=== PATIENT | female | born 1960 | race Caucasian/White ===

== ENCOUNTER 2020-07-11 15:42 | Emergency (ER) | payer MEDICARE, OTHER ==
[2020-07-11] MEDS ORDERED: HYDROmorphone 1 MG/ML Syringe IVPUSH STA (16:09)
[2020-07-11] MEDS ORDERED: Ondansetron 4 MG/2 ML SDV IVPUSH ONE (16:09)
[2020-07-11] MEDS ORDERED: Sodium Chloride 0.9% 1,000 ML IV SCH (16:15)
--- NOTE | 2020-07-11 16:16 | EDM.PDOC ---
ED HPI GENERAL MEDICAL PROBLEM - General Chief Complaint: Back Pain or Injury Stated Complaint: BACK PAIN/NAUSEA Time Seen by Provider: 07/11/20 15:57 Source of Information: Reports: Patient, RN Notes Reviewed History Limitations: Reports: No Limitations - History of Present Illness INITIAL COMMENTS - FREE TEXT/NARRATIVE: Patient is a 60-year-old female who presents to the ED for the evaluation of her sudden onset left back/flank pain. Patient notes that she was riding in a vehicle around 2:30 PM, to [facility] when she had a sudden onset pain, that made her feel instantly nauseous, to her left flank/back. She does hold her kidney area when she describes where her pain is coming from, she states that sometimes it does wrap around into her left groin. She notes she has felt pain like this before when she has had a kidney stone. She denies any dysuria, frequency or urgency, she states she is feeling slightly nauseous, but is in extreme amount of pain. She is not had any fevers or chills, or any vomiting or diarrhea, cough or shortness of breath. Patient's primary care provider is Dr. Abdul. Left Back Pain Score (Numeric/FACES): 10 - Related Data Allergies Allergy/AdvReac Type Severity Reaction Status Date / Time amlodipine Allergy Cannot Verified 07/11/20 15:56 Remember cefuroxime Allergy Cannot Verified 07/11/20 15:56 Remember hydralazine Allergy Other Verified 07/11/20 15:56 hydrochlorothiazide Allergy Other Verified 07/11/20 15:56 lisinopril Allergy Other Verified 07/11/20 15:56 peanut Allergy Other Verified 07/11/20 15:56 promethazine HCl Allergy Other Verified 07/11/20 15:56 [From Phenergan] ranitidine Allergy Cannot Verified 07/11/20 15:56 Remember red dye Allergy Cannot Verified 07/11/20 15:56 Remember valsartan Allergy Other Verified 07/11/20 15:56 meperidine HCl [From Demerol] AdvReac Disorientat Verified 07/11/20 15:56 ion morphine AdvReac Disorientat Verified 07/11/20 15:56 ion Home Meds: Home Meds Alendronate [Fosamax] 70 mg PO Q7D@0600 08/19/16 [History] Aspirin [Lo-Dose Aspirin EC] 81 mg PO DAILY 08/19/16 [History] Calcium Citrate Petite. 1 tab PO DAILY 08/19/16 [History] Famotidine [Pepcid] 20 mg PO DAILY 08/19/16 [History] Indapamide 2.5 mg PO DAILY 08/19/16 [History] Insulin Pump Novolog. 55 units SQ Q24H 08/19/16 [History] Lactobacillus Combo No.10 [Probiotic] 1 each PO DAILY 08/19/16 [History] Latanoprost [Xalatan 0.005% Ophth Soln] 2.5 ml EYERT BEDTIME 08/19/16 [History] Levothyroxine [Synthroid] 50 mcg PO ACBREAKFAST 08/19/16 [History] Multivitamin [Multiple Vitamins] 1 each PO DAILY 08/19/16 [History] Orphenadrine [Norflex] 1 tab PO Q12H PRN #10 tab.er 08/19/16 [Rx] Potassium 1 tab PO DAILY 08/19/16 [History] Pravastatin Sodium [Pravastatin (Pravachol)] 40 mg PO DAILY 08/19/16 [History] Prilosec. 40 mg PO DAILY 08/19/16 [History] atenoloL [Tenormin] 50 mg PO BID 08/19/16 [History] Past Medical History HEENT History: Reports: Glaucoma Cardiovascular History: Reports: High Cholesterol, Hypertension Gastrointestinal History: Reports: Colon Polyp, GERD, PUD Genitourinary History: Reports: Renal Calculus, Urinary Incontinence Musculoskeletal History: Reports: Osteoporosis Neurological History: Reports: TIA Endocrine/Metabolic History: Reports: Diabetes, Type I - Infectious Disease History Infectious Disease History: Reports: Chicken Pox, Mumps - Past Surgical History HEENT Surgical History: Reports: Cataract Surgery, Laser Surgery, Tonsillectomy GI Surgical History: Reports: Cholecystectomy, Colonoscopy Female Surgical History: Reports: Section, Hysterectomy Musculoskeletal Surgical History: Reports: Shoulder Surgery, Other (See Below) Other Musculoskeletal Surgeries/Procedures:: elbow surgery Social & Family History - Family History Family Medical History: No Pertinent Family History - Tobacco Use Tobacco Use Status *Q: Never Tobacco User - Caffeine Use Caffeine Use: Reports: None - Recreational Drug Use Recreational Drug Use: No - Living Situation & Occupation Living situation: Reports: , with Family ED ROS GENERAL - Review of Systems Review Of Systems: Comprehensive ROS is negative, except as noted in HPI. ED EXAM, RENAL/ - Physical Exam Exam: See Below Exam Limited By: No Limitations General Appearance: Alert, WD/WN, No Apparent Distress Respiratory/Chest: No Respiratory Distress, Lungs Clear, Normal Breath Sounds, No Accessory Muscle Use, Chest Non-Tender Cardiovascular: Normal Peripheral Pulses, Regular Rate, Rhythm, No Edema, No Murmur GI/Abdominal: Normal Bowel Sounds, Soft, Non-Tender, No Distention, No Mass Back Exam: Normal Inspection. No: CVA Tenderness (L), CVA Tenderness (R) Extremities: Normal Inspection, Normal Capillary Refill Neurological: Alert, Oriented, Normal Cognition, No Motor/Sensory Deficits Psychiatric: Normal Affect, Normal Mood Skin Exam: Warm, Dry, Intact, Normal Color, No Rash Course - Vital Signs Last Recorded V/S: Last Vital Signs Temp 97.0 F 07/11/20 15:53 Pulse 79 07/11/20 18:40 Resp 18 07/11/20 18:40 BP 190/86 H 07/11/20 18:40 Pulse Ox 96 07/11/20 18:40 - Orders/Labs/Meds Orders: Active Orders 24 hr Category Date Time Status Abdomen Pelvis wo Cont [CT] Stat Exams 07/11/20 16:09 Taken Labs: Laboratory Tests 07/11/20 07/11/20 07/11/20 Range/Units 16:01 16:37 16:58 WBC 6.10 (3.98-10.04) K/mm3 RBC 5.08 (3.98-5.22) M/mm3 Hgb 14.5 (11.2-15.7) gm/dl Hct 44.2 (34.1-44.9) % MCV 87.0 (79.4-94.8) fl MCH 28.5 (25.6-32.2) pg MCHC 32.8 (32.2-35.5) g/dl RDW Std Deviation 43.7 (36.4-46.3) fL Plt Count 236 (182-369) K/mm3 MPV 10.2 (9.4-12.3) fl Neut % (Auto) 58.2 (34.0-71.1) % Lymph % (Auto) 26.7 (19.3-51.7) % [place] % (Auto) 11.8 (4.7-12.5) % Eos % (Auto) 2.6 (0.7-5.8) Baso % (Auto) 0.5 (0.1-1.2) % Neut # (Auto) 3.55 (1.56-6.13) K/mm3 Lymph # (Auto) 1.63 (1.18-3.74) K/mm3 [place] # (Auto) 0.72 H (0.24-0.36) K/mm3 Eos # (Auto) 0.16 (0.04-0.36) K/mm3 Baso # (Auto) 0.03 (0.01-0.08) K/mm3 Sodium 136 (136-145) mEq/L Potassium 3.8 (3.5-5.1) mEq/L Chloride 101 (98-107) mEq/L Carbon Dioxide 28 (21-32) mEq/L Anion Gap 10.8 (5-15) BUN 20 H (7-18) mg/dL Creatinine 1.6 H (0.55-1.02) mg/dL Est Cr Clr Drug Dosing 36.36 mL/min Estimated GFR (MDRD) 33 (>60) mL/min BUN/Creatinine Ratio 12.5 L (14-18) Glucose 200 H (74-106) mg/dL Calcium 9.1 (8.5-10.1) mg/dL Total Bilirubin 0.7 (0.2-1.0) mg/dL AST 13 L (15-37) U/L ALT 20 (14-59) U/L Alkaline Phosphatase 81 (46-116) U/L Total Protein 7.0 (6.4-8.2) g/dl Albumin 3.9 (3.4-5.0) g/dl Globulin 3.1 gm/dL Albumin/Globulin Ratio 1.3 (1-2) Urine Color [place] H (Yellow) Urine Appearance Cloudy H (Clear) Urine pH 7.0 (5.0-8.0) Ur Specific [place] 1.020 (1.005-1.030) Urine Protein 1+ H (Negative) Urine Glucose (UA) Trace H (Negative) Urine Ketones Negative (Negative) Urine Occult Blood 3+ H (Negative) Urine Nitrite Negative (Negative) Urine Bilirubin Negative (Negative) Urine Urobilinogen 1.0 (0.2-1.0) Ur Leukocyte Esterase 1+ H (Negative) Urine RBC >100 H (0-5) /hpf Urine WBC 0-5 (0-5) /hpf Ur Epithelial Cells 0-5 (0-5) /hpf Urine Bacteria Rare (FEW) /hpf Urine Mucus Few (FEW) /hpf Meds: Medications Discontinued Medications Generic Name Dose Route Start Last Admin Trade Name Freq PRN Reason Stop Dose Admin Hydromorphone HCl 1 mg 07/11/20 16:09 07/11/20 16:40 Dilaudid IVPUSH 07/11/20 16:10 1 mg ONETIME STA Administration Sodium Chloride 1,000 mls @ 500 mls/hr 07/11/20 16:15 07/11/20 16:40 Normal Saline IV 500 mls/hr ASDIRECTED STEVEN Administration Ondansetron HCl 4 mg 07/11/20 16:09 07/11/20 16:39 Zofran IVPUSH 07/11/20 16:10 4 mg ONETIME ONE Administration - Re-Assessments/Exams Free Text/Narrative Re-Assessment/Exam: 07/11/20 16:16 Patient presents to the ED for evaluation of her sudden onset left flank pain. Highly likely this could be a kidney stone. We will get IV started, give her some pain meds and nausea meds some fluids get some basic labs urinalysis and a CT without contrast for further evaluation. 07/11/20 17:[address] has been performed, there does appear to be a proximal left ureteral stone. Patient's urine was pink-tinged, however labs are still pending at this time. The stone appears to be only a few millimeters in diameter and should pass on its own without much difficulty. 07/11/20 17:[address] is done, demonstrates a 2 mm stone in the proximal left ureter with moderate left hydronephrosis. There is moderate right hydronephrosis as well with prominence of the right renal pelvis. The remainder of the right ureter appears to be grossly normal in caliber. Possible etiologies would include a component of right UPJ obstruction or other potential obstructing etiology. May consider follow-up imaging. Moderate amount of fluid within the stomach is also present. No other acute abnormalities were appreciated. Patient does have some renal insufficiency, creatinine is 1.6, GFR is 33. The IV fluids should help, will get her some outpatient pain medication and have her do a close follow-up with her regular provider to make sure that her symptoms are getting better and she is indeed not worsening. 07/11/20 18:14 Patient's blood pressure has been steadily in the 200s systolically. I did asked the patient if she has issues with blood pressure, she states that she normally does not, and believes this is due to the pain. As her blood pressure usually spikes when she is in pain. I did offer to treat her, but she declined at this time. She states she will do some conservative management at home and watch her blood pressure at home and follow-up with Dr. Abdul. She is not having any neurological deficits that would necessitate emergent management of her blood pressure, so this is fine with me. Departure - Departure Time of Disposition: 18:04 Disposition: Home, Self-Care 01 Condition: Good Clinical Impression: Left renal stone - Discharge Information *PRESCRIPTION DRUG MONITORING PROGRAM REVIEWED*: No *COPY OF PRESCRIPTION DRUG MONITORING REPORT IN PATIENT DELIA: No Instructions: Dietary Guidelines to Help Prevent Kidney Stones Referrals: Logan Abdul MD [Primary Care Provider] - Forms: ED Department Discharge Additional Instructions: You were evaluated in the ER today for your left flank pain. Your urinalysis did demonstrate some blood in urine, which is suggestive of a kidney stone at this time. A CT was done at this ER visit, this demonstrated a 2 mm stone at the left proximal ureter. You have been given a strainer, please use every time you use the bathroom to make sure that the kidney stone has passed. Recommend that you increase your oral fluid intake to try to help the stone pass. You have been given a few tablets of pain medication, please take as prescribed. These medications are highly addictive, please take as few as you need to. These medications also may cause constipation, please take a stool softener like MiraLAX while taking these medications. I recommend since you are a type I diabetic, and have some kidney issues already that you call Dr. Abdul's office, for a follow-up appointment sometime early this week for reevaluation to make sure that your symptoms are getting better as expected. Please return to the ED if your symptoms change or worsen. Sepsis Event Note (ED) - Evaluation Sepsis Screening Result: No Definite Risk - Focused Exam Vital Signs: Vital Signs Temp Pulse Resp BP Pulse Ox 07/11/20 18:40 79 18 190/86 H 96 07/11/20 15:53 97.0 F 94 18 214/93 H 100 - My Orders Last 24 Hours: My Active Orders 07/11/20 16:09 Abdomen Pelvis wo Cont [CT] Stat - Assessment/Plan Last 24 Hours: My Active Orders 07/11/20 16:09 Abdomen Pelvis wo Cont [CT] Stat
[2020-07-11 18:43] VITALS: BP 190/86; PULSE 79
--- NOTE | 2020-07-12 08:32 | CT ---
CT abdomen and pelvis Technique: Multiple axial sections were obtained from above the liver and spleen inferiorly through the pubic symphysis. Intravenous oral contrast was not utilized. Reconstructed coronal and sagittal images were obtained. Comparison: No prior CT abdomen or pelvis study is available. Findings: Left renal pelvis is dilated. This finding is caused by an obstructing stone at the left UPJ measuring approximately 2.5-3.0 cm. Small nonobstructing stone is noted within the mid right kidney. Bilateral breast prosthesis are noted. Visualized lung bases show nothing acute. Noncontrast appearance of the liver and spleen appear within normal limits. Adrenal glands show no nodule. Pancreas shows no discrete abnormality. Surgical clips are seen from prior cholecystectomy. Diffuse atherosclerotic change is seen within the abdominal aorta without aneurysm. Several lymph nodes are seen within the retroperitoneum believed to be within normal limits. No mesenteric abnormalities are seen. No pelvic mass or adenopathy is seen. Appendix is questionably visualized and shows no dilatation. No inflammatory change is noted. Mild increased stool is seen within portions of the colon. Bone window settings were reviewed which show no acute osseous abnormality. Impression: 1. Small stone at the left UPJ causing proximal hydronephrosis. Small nonobstructing stone within the mid left kidney. 2. Other findings as noted above. Diagnostic code #3 I agree with preliminary report from [facility], finalized on 07/11/20, 6:08 PM HIDE PULLER
== END 2020-07-11 18:52 | disposition home or self-care (01) ==
LOC: JD.ED 15:42
DX: N13.2 Hydronephrosis with renal and ureteral calculous obstruction (principal); I10 Essential (primary) hypertension; E78.00 Pure hypercholesterolemia, unspecified; K21.9 Gastro-esophageal reflux disease without esophagitis; E10.9 Type 1 diabetes mellitus without complications; Z88.8 Allergy status to other drugs, medicaments and biological substances; Z88.1 Allergy status to other antibiotic agents; Z91.010 Allergy to peanuts; Z91.041 Radiographic dye allergy status; Z88.5 Allergy status to narcotic agent; Z90.49 Acquired absence of other specified parts of digestive tract; Z90.710 Acquired absence of both cervix and uterus; Z79.82 Long term (current) use of aspirin; Z79.899 Other long term (current) drug therapy
CPT/HCPCS: 36415; 74176; 80053; 81001; 85025; 96374; 96375; 99284; J1170; J2405; J7030

== ENCOUNTER 2023-11-29 05:33 | Emergency (ER) | payer MEDICARE, OTHER ==
[2023-11-29 05:59] LABS: BASOPHILS ABSOLUTE AUTO 0.1 K/mm3 (0.0-0.2); BASOPHILS PERCENT AUTO 1.2 % (0.0-1.0); EOSINOPHILS ABSOLUTE AUTO 0.3 K/mm3 (0.0-0.4); EOSINOPHILS PERCENT AUTO 5.7 % (0.0-6.0); HEMATOCRIT 41.7 % (37.0-47.0); HEMOGLOBIN 13.8 gm/dl (12.0-16.0); IMMATURE GRAN ABSOLUTE AUTO 0.01 K/mm3 (0.00-0.05); IMMATURE GRAN PERCENT AUTO 0.2 % (0.0-0.4); LYMPHOCYTES PERCENT AUTO 39.2 % (24.0-44.0); MEAN CORPUSCULAR HEMOGLOBIN 28.9 pg (28.0-32.0); MEAN CORPUSCULAR HGB CONC 33.1 g/dl (32.0-36.0); MEAN CORPUSCULAR VOLUME 87.4 fl (83.0-99.0); MEAN PLATELET VOLUME 9.5 fl (9.4-12.3); MONOCYTES ABSOLUTE AUTO 0.8 K/mm3 (0.0-0.8); NEUTROPHILS ABSOLUTE AUTO 1.9 K/mm3 (1.8-7.7); NEUTROPHILS PERCENT AUTO 37.7 % (41.0-71.0); PLATELET COUNT,PLT 233 K/mm3 (150-400); RED BLOOD CELL COUNT 4.77 M/mm3 (4.10-5.30); WHITE BLOOD CELL COUNT,WBC 5.13 K/mm3 (3.9-11.3)
[2023-11-29] MEDS: Iopamidol 755 Mg/ML 100 ML Bottle IVPUSH ONE (06:00)
[2023-11-29 06:17] VITALS: PULSE 84
[2023-11-29 06:21] LABS: INR 0.96; PROTHROMBIN TIME 10.3 SECONDS (9.7-12.0)
[2023-11-29 06:22] LABS: PTT,PARTIAL THROMBOPLSTIN TIME 28.8 SECONDS (21.7-31.4)
[2023-11-29 06:51] LABS: A/G RATIO 1.1 (1-2); ALBUMIN 3.4 g/dl (3.4-5.0); ANION GAP 14.4 (5-15); BILIRUBIN TOTAL 0.4 mg/dL (0.2-1.0); BUN/CREATININE RATIO 12.3 (14-18); CALCIUM 8.7 mg/dL (8.5-10.1); CREATININE 1.3 mg/dL (0.55-1.02); EST CRCL DRUG DOSING (CG) 43.07 mL/min; POTASSIUM,K 3.4 mEq/L (3.5-5.1); PROTEIN TOTAL,TP 6.4 g/dl (6.4-8.2)
[2023-11-29] MEDS: niCARdipine HCl 25 MG in Sodium Chloride 0.9% 250 ML IV SCH (07:21)
[2023-11-29] MEDS: diphenhydrAMINE 50 MG/ML SDV IVPUSH ONE (07:41)
[2023-11-29 08:10] VITALS: BP 173/62
== END 2023-11-29 08:06 ==
LOC: JD.ED 05:33
DX: I63.532 Cerebral infarction due to unspecified occlusion or stenosis of left posterior cerebral artery (principal); E78.00 Pure hypercholesterolemia, unspecified; I10 Essential (primary) hypertension; E10.9 Type 1 diabetes mellitus without complications; Z86.73 Personal history of transient ischemic attack (TIA), and cerebral infarction without residual deficits; Z79.82 Long term (current) use of aspirin; Z79.4 Long term (current) use of insulin; Z79.899 Other long term (current) drug therapy; Z88.5 Allergy status to narcotic agent; Z88.8 Allergy status to other drugs, medicaments and biological substances; Z88.1 Allergy status to other antibiotic agents; Z91.010 Allergy to peanuts; Z91.02 Food additives allergy status
CPT/HCPCS: 36415; 70450; 70496; 70498; 80053; 84484; 85025; 85610; 85730; 93005; 96365; 96375; 99285; J1200; J7050; Q9967; 93010; J3490